=== PATIENT | male | born 1985 | race Caucasian/White ===

== ENCOUNTER 2022-02-25 10:23 | Emergency (ER) | payer SELFPAY ==
--- NOTE | 2022-02-25 16:40 | Emergency Department Report ---
ED General Adult HPI - General Chief complaint: Urogenital-Male Stated complaint: ITCHING ALL OVER Time Seen by Provider: 02/25/22 16:19 Source: patient Mode of arrival: Ambulatory Limitations: No Limitations - History of Present Illness Initial comments: Patient presents with complaints of diffuse itchy rash x15 days. Rash has now spread to his genital area. He states he has been using OTC steroid creams with mild improvement. Itching worsens at night. He states he has been sleeping in a new place recently. No drainage from the rash. He also denies rash being on his palms or soles. No fever/chills/sweats. He denies any past medical history Severity scale (0 -10): 3 - Related Data Previous Rx's Medication Instructions Recorded Last Taken Type Loratadine 10 mg PO QDAY PRN #10 tab 02/25/22 Unknown Rx Permethrin 5% [Acticin 5% CREAM] 1 applicatio TP ONCE #1 tube 02/25/22 Unknown Rx predniSONE 10 mg PO BID PRN 3 Days #6 tab 02/25/22 Unknown Rx Allergies Allergy/AdvReac Type Severity Reaction Status Date / Time No Known Allergies Allergy Unverified 02/25/22 10:29 ED Review of Systems ROS: Stated complaint: ITCHING ALL OVER Other details as noted in HPI Constitutional: denies: chills, fever Respiratory: denies: cough Gastrointestinal: denies: abdominal pain, nausea, vomiting Genitourinary: denies: urgency, dysuria, frequency, hematuria, discharge, testicular pain, testicular mass Skin: rash, pruritus. denies: change in color Neurological: denies: numbness, paresthesias Hematological/Lymphatic: denies: swollen glands ED Past Medical Hx - Past Medical History Previous Medical History?: No - Surgical History Past Surgical History?: No - Medications Home Medications: Home Medications Medication Instructions Recorded Confirmed Last Taken Type Loratadine 10 mg PO QDAY PRN #10 tab 02/25/22 Unknown Rx Permethrin 5% [Acticin 5% CREAM] 1 applicatio TP ONCE #1 tube 02/25/22 Unknown Rx predniSONE 10 mg PO BID PRN 3 Days #6 tab 02/25/22 Unknown Rx ED Physical Exam - General Limitations: No Limitations General appearance: alert, in no apparent distress - Head Head exam: Present: atraumatic, normocephalic - Eye Eye exam: Present: normal appearance. Absent: scleral icterus - Respiratory Respiratory exam: Absent: respiratory distress - exam: Absent: scrotal swelling - Neurological Exam Neurological exam: Present: alert, oriented X3, normal gait - Psychiatric Psychiatric exam: Present: normal affect, normal mood - Skin Skin exam: Present: warm, dry, intact, normal color, other (Diffuse papular minimally erythemic rash scattered to entire body including face arms legs torso and a few scattered areas to the penis; rash is nontender and dry; some linear caba are noted; rash spares the palms and soles). Absent: rash ED Course Vital Signs 02/25/22 10:35 Temperature 97.6 F Pulse Rate 50 L Respiratory 20 Rate Blood Pressure 106/72 [Right] O2 Sat by Pulse 98 Oximetry ED Medical Decision Making - Medical Decision Making Rash appears to be consistent with scabies. Discussed treatment of scabies and need for intense cleaning of living area. Strict return precautions discussed in detail with patient who verbalized understanding Critical care attestation.: If time is entered above; I have spent that time in minutes in the direct care of this critically ill patient, excluding procedure time. ED Disposition Clinical Impression: Rash Disposition: 01 HOME / SELF CARE / HOMELESS Is pt being admited?: No Condition: Stable Instructions: Scabies, Adult Prescriptions: Permethrin 5% [Acticin 5% CREAM] 1 applicatio TP ONCE #1 tube Loratadine 10 mg PO QDAY PRN #10 tab PRN Reason: itching predniSONE 10 mg PO BID PRN 3 Days #6 tab PRN Reason: itching Referrals: [facility] [Provider Group] - 3-5 Days Print Language: SERBIAN
[2022-02-25 17:31] VITALS: BP 110/69
== END 2022-02-25 17:15 | disposition home or self-care (01) ==
LOC: ED 10:23
DX: R21 Rash and other nonspecific skin eruption (principal)
CPT/HCPCS: 99282